=== PATIENT | female | born 1950 | race Caucasian/White ===

== ENCOUNTER 2016-08-29 13:26 | Outpatient (CLI) | payer MEDICARE ==
[2016-08-29 13:47] LABS: #Eosinphils 0.5 thou/uL (0.0-0.7); #Lymphocytes 1.8 thou/uL (1.20-3.40); #Monocytes 0.2 thou/uL (0.11-0.59); #Neutrophils 3.1 thou/uL (1.40-6.50); %Basophils 0.6 % (0.0-1.0); %Eosinophils 8.7 % (0.0-10.0); %Monocytes 3.6 % (0.0-10.0); Hematocrit 37.3 % (36.0-47.0); Mean Platelet Volume 5.9 fL (7.4-10.4); Red Blood Cell (RBC) Count 3.79 mill/uL (4.20-5.40); White Blood Cell (WBC) Count 5.7 thou/uL (4.8-10.8)
[2016-08-29 13:53] LABS: ALT (SGPT) 25 U/L (0-55); AST (SGOT) 18 U/L (5-34); Alkaline Phosphatase 175 U/L (40-150); Anion Gap 14 mmol/L (10-20); BUN (Urea Nitrogen) 6 mg/dL (9.8-20.1); Bilirubin, Total 0.3 mg/dL (0.2-1.2); Calc. Creatinine Clearance 0 mL/min (70-130); Calcium 9.8 mg/dL (7.8-10.44); Carbon Dioxide 27 mmol/L (23-31); Chloride 101 mmol/L (98-107); Estimated GFR-MDRD 85; Globulin 3.2 g/dL (2.4-3.5); LDL Cholesterol, Calculated 144 mg/dL; Protein, Total 7.5 g/dL (5.8-8.1)
[2016-08-29 14:22] LABS: Methamphetamine Not Detected (NotDetected)
[2016-08-29 14:23] LABS: Methadone Not Detected (NotDetected)
== END 2016-08-29 13:27 ==
LOC: HPCALD 13:26
PROVIDERS: ATTEND Family Medicine
DX: Z13.6 Encounter for screening for cardiovascular disorders (principal); Z51.81 Encounter for therapeutic drug level monitoring; Q82.2 Congenital cutaneous mastocytosis
CPT/HCPCS: 36415; 80053; 80061; 80306; 84443; 85025

== ENCOUNTER 2017-04-23 14:33 | Outpatient (CLI) | payer MEDICARE ==
--- NOTE | 2017-04-23 23:56 | RAD ---
LEFT HIP TWO VIEWS 04/23/17 No prior hip films are available for comparison. I did look at a CT of the abdomen from 2013 that in cluded some of the hips in them. No fracture, dislocation, or acute bony change was seen. Minimal joint space narrowing is seen in th e hip joint. The articular surfaces are smooth. There is some slight mottling and sclerosis around t he femoral head and neck. I believe this is longstanding. While not exactly comparable, looking back at the CT scan there were some similar findings here in the past. IMPRESSION: No acute bony finding. POS: HOME
--- NOTE | 2017-04-24 00:11 | RAD ---
LUMBAR SPINE THREE VIEWS 04/23/17 Comparison is made with an MRI from 2012. There is a very prominent grade I, almost grade II anterolisthesis of L5 on S1. This was not present in 2012. The bone here also seem rather sclerotic. There is disc space narrowing at L5-S1. There ma y be a little sclerosis of the bony pelvis. The hips are somewhat mottled but symmetrical bilaterall y. Dense arteriosclerosis of the aorta was seen. IMPRESSION: 1. Prominent anterolisthesis of L5 on S1 with disc space narrowing at this level. The anterior slippage of the vertebra is a new finding since 2012. 2. Questionable sclerosis of some of the surrounding bone. Recommendation: I would strongly recommend doing an MRI on this patient to better assess any neural impingement and status of the bones themselves, in addition to disc disease at L5-S1. Code T POS: HOME
== END 2017-04-23 14:34 | disposition home or self-care (01) ==
LOC: BURRAD 14:33
PROVIDERS: ATTEND Family Medicine
DX: M54.32 Sciatica, left side (principal); M43.16 Spondylolisthesis, lumbar region
CPT/HCPCS: 72100

== ENCOUNTER 2019-02-25 15:19 | Outpatient (CLI) | payer MEDICARE ==
--- NOTE | 2019-02-25 21:03 | RAD ---
LEFT HIP TWO VIEWS: 02/25/19 Comparison is made with the 04/23/17 study. No fracture or joint space narrowing was seen. As was ment ioned previously, there is some generalized coarsening to the trabecular structure of the bone from t he femoral head through neck and trochanteric region. The findings are reminiscent of pagetic changes in bone and could represent this disease. The coarsening has increased over time. There is no perios teal reaction or expansion of bone. The adjacent pubic ring appears intact. IMPRESSION: No acute findings. Coarse trabecular architecture of the proximal femur. Paget's disease or similar e ntities might explain this. POS: HOME
== END 2019-02-25 15:20 | disposition home or self-care (01) ==
LOC: EEVIPCON 15:19 → BURRAD 15:19
PROVIDERS: ATTEND Family Medicine
DX: M25.552 Pain in left hip (principal)